=== PATIENT | male | born 1955 | race Caucasian/White ===

== ENCOUNTER 2021-12-26 18:10 | Emergency (ER) | payer MEDICARE ==
[2021-12-26] MEDS ORDERED: diphenhydrAMINE 50 MG/ML 1 ML VIAL IM STA (19:22)
[2021-12-26] MEDS ORDERED: methylPREDNISolone SOD SUCCI 125 MG/2 ML VIAL IM STA (19:22)
[2021-12-26] MEDS ORDERED: FAMOTIDINE 20 MG TAB PO STA (19:23)
[2021-12-26 19:25] VITALS: TEMP 99.7
--- NOTE | 2021-12-26 19:26 | ED ---
Extremity Problem HPI - General Stated complaint: bee sting, hand swelling Time Seen by Provider: 12/26/21 19:20 Source: patient, RN notes reviewed - History of Present Illness Initial comments: This is a pleasant, [id number] 66-year-old male who was stung by a bee in his right hand about 2 hours prior to arrival. Patient has not taken any medication but has swelling to the area. There is been no respiratory distress. No wheezing. No urticaria. Patient has no history of hymenoptera ALLERGY. No airway founds. No difficulty with speech or swallowing. Nonsmoker. No alcohol or drug abuse. No headache, no fever or chills, no changes in vision or hearing, no sore throat or difficulty with speech, no neck pain, no chest pain or shortness of breath, no abdominal pain, no nausea or vomiting, no changes in urination or bowel movements, no numbness or tingling, no specific extremity pain but does have swelling to the left hand near the site of sting, no skin rashes or lesions. - Related Data Previous Rx's Medication Instructions Recorded Famotidine [Pepcid] 20 mg PO BID #10 tablet 12/26/21 diphenhydrAMINE [Benadryl] 25 mg PO QID PRN #24 capsule 12/26/21 predniSONE 50 mg PO DAILY #3 tab 12/26/21 Allergies Allergy/AdvReac Type Severity Reaction Status Date / Time No Known Allergies Allergy Verified 12/26/21 19:38 Review of Systems ROS Statement: Those systems with pertinent positive or pertinent negative responses have been documented in the HPI. ROS Other: All systems not noted in ROS Statement are negative. General Exam General appearance: alert, in no apparent distress Head exam: Present: atraumatic, normocephalic, normal inspection Eye exam: Present: normal appearance, PERRL, EOMI. Absent: scleral icterus, c onjunctival injection, periorbital swelling ENT exam: Present: normal exam, normal oropharynx, mucous membranes moist, normal external ear exam. Absent: mucous membranes dry Neck exam: Present: normal inspection, full ROM. Absent: tenderness, meningismus, lymphadenopathy Respiratory exam: Present: normal lung sounds bilaterally. Absent: respiratory distress, wheezes, rales, rhonchi, stridor Cardiovascular Exam: Present: regular rate, normal rhythm, normal heart sounds. Absent: systolic murmur, diastolic murmur, rubs, gallop, clicks GI/Abdominal exam: Present: soft, normal bowel sounds. Absent: distended, tenderness, guarding, rebound, rigid Extremities exam: Present: full ROM, normal capillary refill. Absent: normal inspection (Patient has diffuse edema to the left hand, no evidence of retained stinger. Patient was somewhat limited by swelling. Pulses 2+ out of 4. Capillary refill less than 2 seconds), tenderness, pedal edema, joint swelling, calf tenderness Back exam: Present: normal inspection. Absent: paraspinal tenderness, vertebral tenderness Neurological exam: Present: alert, oriented X3, CN II-XII intact Psychiatric exam: Present: normal affect, normal mood Skin exam: Present: warm, dry, intact, normal color. Absent: rash, cyanosis, diaphoretic, erythema, urticaria, vesicles Course Vital Signs 12/26/21 19:20 Temperature 99.7 F H Pulse Rate 99 Respiratory 16 Rate Blood Pressure 179/113 O2 Sat by Pulse 97 Oximetry Medical Decision Making - Medical Decision Making She presents with a Hymenoptera sting to his left hand, local reaction, no evidence of systemic reaction. We'll treat with corticosteroids, and antihistamines. I did call and prednisone, Benadryl, and famotidine to the patient's pharmacy. Patient was told to return to the ER for any signs or symptoms worsen. Told to return immediately if any other problems arise. All questions answered. Treatment plan discussed. Patient in agreement Every effort has been made to ensure accuracy of this dictation. However, due to the limitations of electronic medical records and dictation devices, errors in charting still occur. Patient informed of blood pressure and told to follow-up with his regular physician. Patient does have antihypertensive medications. Patient asymptomatic regarding blood religious education director Dr. Murray Disposition Clinical Impression: Local reaction to hymenoptera sting, Uncontrolled hypertension Disposition: HOME SELF-CARE Condition: Good Instructions (If sedation given, give patient instructions): Insect Bite or Sting (ED), Hypertension (ED) Additional Instructions: Prednisone 50 mg once daily for 3 days, Pepcid 20 mg twice a day for 5 days, Benadryl 25 mg as directed. Follow-up with your regular physician as directed. Return to the ER immediately if any symptoms worsen, new symptoms arise, or any other problems develop. Prescriptions: diphenhydrAMINE [Benadryl] 25 mg PO QID PRN #24 capsule PRN Reason: Itching Famotidine [Pepcid] 20 mg PO BID #10 tablet predniSONE 50 mg PO DAILY #3 tab Is patient prescribed a controlled substance at d/c from ED?: No Referrals: Mayo Fonseca MD [Primary Care Provider] - 1-2 days Time of Disposition: 20:27
[2021-12-26 20:56] VITALS: BP 155/99; PULSE 75; RESP 18
== END 2021-12-26 20:56 | disposition home or self-care (01) ==
LOC: EC 18:10
DX: T63.441A Toxic effect of venom of bees, accidental (unintentional), initial encounter (principal); I10 Essential (primary) hypertension
CPT/HCPCS: 99283; 96372; J1200; J2930

== ENCOUNTER → 2023-06-01 | Outpatient (CLI) | payer MEDICARE ==
--- NOTE | 2023-06-01 11:30 | CT ---
EXAMINATION TYPE: CT chest wo/w con DATE OF EXAM: 06/01/2023 COMPARISON: None HISTORY: density on rt lower lung found on XRAY CT DLP: 830.70 mGycm Automated exposure control for dose reduction was used. CONTRAST: CT scan of the chest is performed with IV Contrast, patient injected with 80 mL of Isovue 300. FINDINGS: LUNGS: The lungs are grossly clear, there is no concerning parenchymal mass or nodule identified. T here is no pleural effusion or pneumothorax seen. The tracheobronchial tree is patent. Pleural-paren chymal scarring right medial lung base. MEDIASTINUM: There are no greater than 1 cm hilar or mediastinal lymph nodes. No pericardial effusi on is seen. Thoracic aorta is of normal caliber. The heart is not enlarged. UPPER ABDOMEN: No significant abnormality appreciated. OTHER: No additional significant abnormality is seen. IMPRESSION: No significant abnormality appreciated.
== END | disposition home or self-care (01) ==
LOC: RADCTMAIN 10:06
PROVIDERS: ATTEND Internal Medicine
DX: J98.4 Other disorders of lung (principal); R93.89 Abnormal findings on diagnostic imaging of other specified body structures
CPT/HCPCS: 71270; Q9967